=== PATIENT | female | born 1935 | race Caucasian/White ===

== ENCOUNTER → 2016-06-04 | Outpatient (CLI) | payer MEDICARE, OTHER ==
[~2016-06-04] MED LIST: ALDACTONE 25MG25 M1 PO; ALPRAZOLAM; AMBIEN 10MG10 MG PO; AMBIEN5 MG PO; CALTRATE 600 +1 TAB PO; CARAFATE 1GM1 G PO; DYAZIDE 25 MG-51 CAP PO; FLEXERIL 1010 MG/TAB PO; MVI; MYRBETR25MG PO; NEXIUM 20MG20 MG PO; NEXIUM 40MG40 MG PO; NORCO 325 MG-51 TAB PO; PANCREAZE 437501 ECC PO; PHENERGAN W/CO120 M1 PO; PHENERGAN W/CO120 ML PO; PREMARIN .3MG0.3 MG PO; PRILOSEC10 MG PO; PROTONIX20 MG PO; PROVENTIL0.09 MG/A1 IH; TAMIFLU 75MG75 MG PO; XANAX 0.5MG0.5 MG PO; ZANTAC 150MG T150 MG PO; [UNRECOGNIZED DRUG - REMARK] PO; plendil
== END ==
LOC: COL.RAD 05-24 09:00
DX: K21.9 Gastro-esophageal reflux disease without esophagitis (principal); K44.9 Diaphragmatic hernia without obstruction or gangrene

== ENCOUNTER 2016-06-23 08:32 | Day surgery (SDC) | payer MEDICARE, OTHER ==
[2016-06-23] VITALS (9 sets, daily range): BP systolic 134–154; BP diastolic 76–87; PULSE 70–97; TEMP 98–98.6
[~2016-06-23] VITALS: Ht 160 cm; Wt 63.8 kg
[~2016-06-23 08:32] MED LIST changes: -ALDACTONE 25MG25 M1 PO; -AMBIEN 10MG10 MG PO; -CARAFATE 1GM1 G PO; -DYAZIDE 25 MG-51 CAP PO; -FLEXERIL 1010 MG/TAB PO; -MYRBETR25MG PO; -NEXIUM 40MG40 MG PO; -NORCO 325 MG-51 TAB PO; -PANCREAZE 437501 ECC PO; -PREMARIN .3MG0.3 MG PO; -PROTONIX20 MG PO; -PROVENTIL0.09 MG/A1 IH; -XANAX 0.5MG0.5 MG PO; -ZANTAC 150MG T150 MG PO; -[UNRECOGNIZED DRUG - REMARK] PO
[2016-06-23] MEDS ORDERED: NEXIUM 40MG40 MG PO (09:53)
[2016-06-23] MEDS ORDERED: AMBIEN 10MG10 MG PO (09:54)
[2016-06-23] MEDS ORDERED: XANAX 0.5MG0.5 MG PO (09:54)
[2016-06-23] MEDS ORDERED: MYRBETR25MG PO (09:55)
[2016-06-23] MEDS ORDERED: CARAFATE 1GM1 G PO (09:56)
[2016-06-23] MEDS ORDERED: ALDACTONE 25MG25 M1 PO (09:56)
[2016-06-23] MEDS ORDERED: FLEXERIL 1010 MG/TAB PO (09:57)
[2016-06-23] MEDS ORDERED: DYAZIDE 25 MG-51 CAP PO (09:58)
[2016-06-23] MEDS ORDERED: PROTONIX20 MG PO (10:04)
[2016-06-23] MEDS ORDERED: ZANTAC 150MG T150 MG PO (10:06)
[2016-06-23] MEDS ORDERED: PROVENTIL0.09 MG/A1 IH (10:26)
[2016-06-23] MEDS ORDERED: [UNRECOGNIZED DRUG - REMARK] PO (10:29)
[2016-06-23] MEDS ORDERED: PREMARIN .3MG0.3 MG PO (10:30)
[2016-06-23] MEDS ORDERED: PANCREAZE 437501 ECC PO (10:31)
[2016-06-23] MEDS ORDERED: PHENERGAN W/CO120 M1 PO (10:32)
[2016-06-24 02:06] VITALS: BP 120/70; PULSE 93; TEMP 98.5
[2016-06-24 04:40] VITALS: BP 123/72; PULSE 93; TEMP 97.5
[2016-06-24 09:43] VITALS: BP 127/87; PULSE 91; TEMP 97.6
[2016-06-24 13:40] VITALS: BP 125/82; PULSE 102; TEMP 98
[2016-06-24] MEDS ORDERED: NORCO 325 MG-51 TAB PO (18:05)
== END 2016-06-24 18:30 | disposition home or self-care (01) ==
LOC: SDCO 08:32 → JCC 14:44 → SDCO 06-24 18:30
DX: K21.9 Gastro-esophageal reflux disease without esophagitis (principal); K44.9 Diaphragmatic hernia without obstruction or gangrene; R05 Cough; I10 Essential (primary) hypertension
CPT/HCPCS: OP; C1713; J0330; J0690; J1100; J2270; J2370; J2405; J2704; J2710; J3010; J7042; J7120

== ENCOUNTER 2016-07-24 17:53 | Emergency (ER) | payer MEDICARE, OTHER ==
[~2016-07-24] VITALS: Ht 160 cm; Wt 60.0 kg
[~2016-07-24 17:53] MED LIST changes: +ALDACTONE 25MG25 M1 PO; +AMBIEN 10MG10 MG PO; +CARAFATE 1GM1 G PO; +DYAZIDE 25 MG-51 CAP PO; +FLEXERIL 1010 MG/TAB PO; +MYRBETR25MG PO; +NEXIUM 40MG40 MG PO; +NORCO 325 MG-51 TAB PO; +PANCREAZE 437501 ECC PO; +PREMARIN .3MG0.3 MG PO; +PROTONIX20 MG PO; +PROVENTIL0.09 MG/A1 IH; +XANAX 0.5MG0.5 MG PO; +ZANTAC 150MG T150 MG PO; +[UNRECOGNIZED DRUG - REMARK] PO
[2016-07-24 18:02] VITALS: TEMP 98
[2016-07-24 19:01] LABS: BASO % 0.3 % (0.0-2.0); EOS # 0.1 (0.0-0.7); EOS % 0.9 % (0-4.0); GRAN # 5.7 (1.4-6.5); GRAN % 56.4 % (42.2-75.2); HEMATOCRIT 44.9 % (37.0-47.0); HEMOGLOBIN 15.3 g/dl (12.5-16.0); LYMPH # 3.2 (1.2-3.4); LYMPH % 31.5 % (20.0-51.0); MEAN CELL VOLUME 87 fl (80.0-100.0); MEAN CORPUSCULAR HEMOGLOBIN 30 pg (27.0-31.0); MEAN CORPUSCULAR HGB CONC 34 g/dl (33.0-37.0); MEAN PLATELET VOLUME 10.2 fl (7.4-10.4); MONO # 1.1 (0.1-0.6); MONO % 10.7 % (1.7-9.3); PLATELET COUNT 285 K/mm3 (130-400); RED BLOOD COUNT 5.14 M/mm3 (4.10-5.30); REDCELL DISTRIBUTION WIDTH-CV 13.4 % (11.5-14.5)
[2016-07-24 19:13] LABS: ADJUSTED CALCIUM 10.1 mg/dL (8.4-10.2); ALBUMIN 4.8 gm/dL (3.5-5.0); BILIRUBIN,TOTAL 0.8 mg/dL (0.0-1.0); CALCIUM 10.7 mg/dL (8.4-10.2); CREATININE, serum 0.97 mg/dL (0.52-1.25); POTASSIUM 3.6 mmol/L (3.4-5.0)
[2016-07-24 19:57] VITALS: BP 117/94; PULSE 91
== END 2016-07-24 19:57 | disposition home or self-care (01) ==
LOC: COL.ER 17:53
PROVIDERS: Emergency Medicine
DX: R10.13 Epigastric pain (principal); K21.9 Gastro-esophageal reflux disease without esophagitis
CPT/HCPCS: J7040

== ENCOUNTER → 2017-02-09 | Outpatient (CLI) | payer MEDICARE, OTHER | LOC: COL.RAD 13:40 | DX: M54.5 Low back pain (principal); M53.3 Sacrococcygeal disorders, not elsewhere classified; G89.29 Other chronic pain; M79.604 Pain in right leg; Z90.49 Acquired absence of other specified parts of digestive tract; Z90.710 Acquired absence of both cervix and uterus; Z90.13 Acquired absence of bilateral breasts and nipples; Z96.651 Presence of right artificial knee joint | CPT/HCPCS: G0260; J3301 ==

== ENCOUNTER → 2017-08-08 | Outpatient (CLI) | payer MEDICARE, OTHER | LOC: MC.RAD 09:58 | DX: Z12.31 Encounter for screening mammogram for malignant neoplasm of breast (principal); Z98.82 Breast implant status ==

== ENCOUNTER 2018-08-12 17:59 | Inpatient (IN) | payer MEDICARE, OTHER ==
[2018-08-12] VITALS (68 sets, daily range): BP systolic 158–159; BP diastolic 66–76; PULSE 73–74; TEMP 97.8–98.7; O2SAT 95–98
[~2018-08-12] VITALS: Ht 157.5 cm; Wt 57.2 kg
[2018-08-12 18:25] LABS: BASO % 0.1 % (0.0-2.0); EOS % 0.1 % (0-4.0); GRAN # 13.8 (1.4-6.5); GRAN % 82.1 % (42.2-75.2); HEMATOCRIT 40.8 % (37.0-47.0); HEMOGLOBIN 14.8 g/dl (12.5-16.0); LYMPH % 11.8 % (20.0-51.0); MEAN CELL VOLUME 85 fl (80.0-100.0); MEAN CORPUSCULAR HEMOGLOBIN 31 pg (27.0-31.0); MEAN CORPUSCULAR HGB CONC 36 g/dl (33.0-37.0); MEAN PLATELET VOLUME 8.9 fl (7.4-10.4); MONO # 0.9 (0.1-0.6); MONO % 5.6 % (1.7-9.3); PLATELET COUNT 352 K/mm3 (130-400); RED BLOOD COUNT 4.78 M/mm3 (4.10-5.30); REDCELL DISTRIBUTION WIDTH-CV 12.4 % (11.5-14.5)
[2018-08-12 18:29] LABS: PROTHROMBIN TIME 11.5 SECONDS (9.7-12.8)
[2018-08-12 18:34] LABS: ALANINE AMINOTRANSFERASE 17 U/L (9-52); ALBUMIN 4.4 gm/dL (3.5-5.0); ALKALINE PHOSPHATASE 109 U/L (50-136); ANION GAP 13 mmol/L (7-16); AST,SGOT 24 U/L (15-37); BILIRUBIN,TOTAL 1.1 mg/dL (0.0-1.0); BLOOD UREA NITROGEN 15 mg/dL (7-17); CALCIUM 9.9 mg/dL (8.4-10.2); CARBON DIOXIDE 25 mmol/L (22-30); CREATININE, serum 0.55 (0.52-1.25); GLUCOSE 137 mg/dL (74-106); POTASSIUM 3.3 mmol/L (3.4-5.0); TOTAL PROTEIN 7.5 gm/dL (6.4-8.2)
[2018-08-12 18:47] LABS: CHLORIDE 80 mmol/L (98-107); SODIUM 119 mmol/L (137-145); TROPONIN-I < 0.012 ng/mL (0.000-0.035)
[2018-08-12 20:19] LABS: COLLECTION METHOD CLEAN CATCH
[2018-08-12 20:29] LABS: PH 7 (5-8); SQUAMOUS EPITHELIAL None Seen /hpf; URINE APPEARANCE Clear; URINE BACTERIA None Seen /hpf; URINE BILIRUBIN Negative (NEGATIVE); URINE BLOOD Negative (NEGATIVE); URINE COLOR Yellow; URINE GLUCOSE Negative (NEGATIVE); URINE KETONE 1+ (NEGATIVE); URINE LEUKOCYTE ESTERASE Negative (NEGATIVE); URINE NITRATE Negative (NEGATIVE); URINE PROTEIN(semi-quant) Negative (NEGATIVE); URINE RBC 0-2 /hpf; URINE UROBILINOGEN Negative (NEGATIVE)
[2018-08-12] MEDS ORDERED: OMEGA-3 1000 MG1 CAP PO (20:33)
[2018-08-12] MEDS ORDERED: AMBIEN 5MG TABLE5 MG PO (20:33)
--- NOTE | 2018-08-12 22:00 | NUR ---
[facility] Patient requiring minimal assistance to sit up right and to transfer to [facility]. No concerns at this time.
--- NOTE | 2018-08-12 22:19 | NUR ---
Received telephone report from NATALIA Blackwell.
--- NOTE | 2018-08-12 22:37 | NUR ---
Arrived to the unit via stretcher; able to transfer to ICU bed with 2 assist. Attached to all monitor. Patient reported feeling "better than before" and reports nausea is much better. Assessment complete.
--- NOTE | 2018-08-12 22:49 | NUR ---
Reported latest Sodium level to Hospitalist. Hospitalist wanting her to received only 100ml/hr of NS. Also receiving potassium replacement. Will hold NS while potassium runs. Ok'd per hospitalist.
[2018-08-12 23:04] LABS: CALCIUM 9.1 mg/dL (8.4-10.2); CREATININE, serum 0.54 (0.52-1.25); MAGNESIUM 1.4 mg/dL (1.6-2.3); PHOSPHOROUS 3.2 mg/dL (2.5-4.5); POTASSIUM 3.4 mmol/L (3.4-5.0)
[2018-08-13] VITALS (774 sets, daily range): BP systolic 144–159; BP diastolic 66–85; PULSE 73–93; TEMP 97.7–98.7; O2SAT 73–100
[2018-08-13] MEDS ORDERED: XANAX 0.5MG0.5 MG PO (01:08)
[2018-08-13] MEDS ORDERED: PRIL40 PO (01:10)
[2018-08-13] MEDS ORDERED: MYRBETR25MG PO (01:13)
[2018-08-13] MEDS ORDERED: PROMETHAZINE H118 ML (01:21)
[2018-08-13] MEDS ORDERED: BIOTENE ORALBAL42 GM (01:23)
[2018-08-13] MEDS ORDERED: FLEXERIL 1010 MG/TAB PO (02:09)
[2018-08-13] MEDS ORDERED: HAIRSKINNAILS PO (02:12)
[2018-08-13 03:20] LABS: CALCIUM 9.4 mg/dL (8.4-10.2); CREATININE, serum 0.56 (0.52-1.25); POTASSIUM 3.8 mmol/L (3.4-5.0)
--- NOTE | 2018-08-13 04:00 | NUR ---
Awake and resting in bed. No complaints at this time.
[2018-08-13 05:51] LABS: BASO % 0.1 % (0.0-2.0); EOS % 0.1 % (0-4.0); GRAN # 5.3 (1.4-6.5); GRAN % 61.5 % (42.2-75.2); HEMATOCRIT 38.9 % (37.0-47.0); HEMOGLOBIN 13.8 g/dl (12.5-16.0); LYMPH # 2.2 (1.2-3.4); LYMPH % 25.5 % (20.0-51.0); MEAN CELL VOLUME 86 fl (80.0-100.0); MEAN CORPUSCULAR HEMOGLOBIN 31 pg (27.0-31.0); MEAN CORPUSCULAR HGB CONC 36 g/dl (33.0-37.0); MEAN PLATELET VOLUME 9.6 fl (7.4-10.4); MONO # 1.1 (0.1-0.6); MONO % 12.6 % (1.7-9.3); PLATELET COUNT 334 K/mm3 (130-400); REDCELL DISTRIBUTION WIDTH-CV 12.6 % (11.5-14.5)
[2018-08-13 06:07] LABS: CALCIUM 9.2 mg/dL (8.4-10.2); CREATININE, serum 0.56 (0.52-1.25); POTASSIUM 3.6 mmol/L (3.4-5.0)
[2018-08-13 13:36] LABS: CALCIUM 9.3 mg/dL (8.4-10.2); CREATININE, serum 0.59 (0.52-1.25); POTASSIUM 3.3 mmol/L (3.4-5.0)
--- NOTE | 2018-08-13 13:43 | NUR ---
Patient lives with her daughter (Anita) at home in [place], [place] and plans to return home upon recovery. Patient's late approximately 1 year ago and her daughters (Anita and Ethel) are supportive of her medical needs. Patient does not have any durable medical equipment anticipated needs at this time, her primary care physician is Dr. Oneil Nolen, her [facility], and she does have advance directives completed. No further needs at this time, and clinical social work therapist will follow up as needed.
--- NOTE | 2018-08-13 18:17 | NUR ---
Attempted to all surgical floor to give patient report. No answer at desk or charge nurse phone.
--- NOTE | 2018-08-13 18:26 | NUR ---
2nd attempt to call surgical floor for patient report. No answer at desk or on charge nurse phone.
--- NOTE | 2018-08-13 18:34 | NUR ---
Return call from Surgical nurse, Jennie FISHER. Refuses to take nurse report at this time, will have to wait and call to maintenance technician 3rd shift nurse.
--- NOTE | 2018-08-13 18:59 | NUR ---
Report called to Elena RN. Will transfer to room 349 when able.
--- NOTE | 2018-08-13 19:50 | NUR ---
Transferred to room 349 via wheelchair. Elena RN in room on admit, care turned over to her. Patient tucked into bed with call light in hand
--- NOTE | 2018-08-13 20:00 | NUR ---
Patient transferred from ICU per W/C. Is alert and oriented x4. Has SL to left forearm without redness or swelling. Remains on telemetry, shows SR. Instructed to call for assist when needing to get up to the bathroom, verbalized understanding. Watching TV at this time.
--- NOTE | 2018-08-13 22:00 | NUR ---
Patient takes HS meds including Xanax and Ambien for sleep. Lab here to check BMP.
[2018-08-13 22:46] LABS: CALCIUM 9.8 mg/dL (8.4-10.2); CREATININE, serum 0.58 (0.52-1.25); POTASSIUM 3.2 mmol/L (3.4-5.0)
--- NOTE | 2018-08-13 23:00 | NUR ---
Patient on Potassium protocol, K+=3.2, given one dose of Potassium effervescent 20mEq at this time. Will have AM lab.
[2018-08-14 04:00] VITALS: BP 134/87; PULSE 78; TEMP 97.9
--- NOTE | 2018-08-14 04:00 | NUR ---
Patient resting well, no complaints offered of pain or nausea.
[2018-08-14 08:10] LABS: BASO % 0.1 % (0.0-2.0); EOS % 0.3 % (0-4.0); GRAN # 4.9 (1.4-6.5); GRAN % 63.9 % (42.2-75.2); HEMATOCRIT 39.3 % (37.0-47.0); HEMOGLOBIN 13.6 g/dl (12.5-16.0); LYMPH # 1.7 (1.2-3.4); MEAN CELL VOLUME 88 fl (80.0-100.0); MEAN CORPUSCULAR HEMOGLOBIN 31 pg (27.0-31.0); MEAN CORPUSCULAR HGB CONC 35 g/dl (33.0-37.0); MEAN PLATELET VOLUME 9.7 fl (7.4-10.4); MONO % 13.4 % (1.7-9.3); PLATELET COUNT 319 K/mm3 (130-400); RED BLOOD COUNT 4.45 M/mm3 (4.10-5.30)
[2018-08-14 08:24] LABS: CALCIUM 9.2 mg/dL (8.4-10.2); CREATININE, serum 0.51 (0.52-1.25); MAGNESIUM 1.5 mg/dL (1.6-2.3); PHOSPHOROUS 1.7 mg/dL (2.5-4.5)
[2018-08-14 08:29] LABS: POTASSIUM 2.8 mmol/L (3.4-5.0)
[2018-08-14 09:33] VITALS: BP 144/68; PULSE 84; TEMP 97.9
--- NOTE | 2018-08-14 09:53 | NUR ---
Assessment completed, alert/oriented, vital signs stable, denies pain or discomfort and reports "feeling much better", Na 130 and K 2.8 this moring, replacing K per protocol, heart RRR/ SR on tele, lungs CTA/ no reps.difficulty, she is sitting up eating breakfast with daughter in the room, denies other needs at ths time
[2018-08-14 13:12] VITALS: BP 137/69; PULSE 74; TEMP 97.8
--- NOTE | 2018-08-14 13:12 | NUR ---
Initial visit; Patient thanked Battery Installer for looking in on her and offering Spiritual Care. Battery Installer wished Juliet well.
[2018-08-14 16:43] VITALS: BP 148/77; PULSE 81; TEMP 97.9
--- NOTE | 2018-08-14 20:06 | NUR ---
Initial shift assessment done- denies pain at this time- up in room on own- steady on feet-- lab here to redraw potassium level for protocol. Did drink all of nutrition milkshake tonight
[2018-08-15] VITALS: BP 109/57; PULSE 89; TEMP 98
[2018-08-15 04:00] VITALS: BP 100/65; PULSE 86; TEMP 97.8
--- NOTE | 2018-08-15 05:52 | NUR ---
Quiet night- VSS, did sleep for 4-5 hours with the ambien/xanax combination, awake now, watching TV
[2018-08-15 07:47] LABS: CALCIUM 9.8 mg/dL (8.4-10.2); CREATININE, serum 0.55 (0.52-1.25); PHOSPHOROUS 3.3 mg/dL (2.5-4.5); POTASSIUM 4.3 mmol/L (3.4-5.0)
[2018-08-15 08:21] VITALS: BP 162/72; PULSE 88; TEMP 97.6
[2018-08-15] MEDS ORDERED: PRINIVIL20 MG PO (09:05)
[2018-08-15] MEDS ORDERED: MAG-OX 400400 MG/TAB PO (09:05)
--- NOTE | 2018-08-15 09:30 | NUR ---
Patient has been up in the room. She is doing well. No complaints of pain. She is hoping to go home today. She walked in the hallway once this morning. She stated she feeling so much better now. No other changes at this time. Call light within reach.
--- NOTE | 2018-08-15 09:53 | NUR ---
BARTOLOME informed that patient will discharge home today. BARTOLOME presented IM to patient. She signed but did not request a copy.
--- NOTE | 2018-08-15 12:15 | NUR ---
Patient is discharging home. Discharge instructions discussed with patient. No questions verbalized. INT discontinued. Explained when follow up appointment is. Explained she has labs to get done before her follow up appointment. Her daughter is here is going to take her home. 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 All belongings packed up and sent with patient. Patient walked out with this nurse.
== END 2018-08-15 12:15 | disposition home or self-care (01) | DRG 641 ==
LOC: COL.ER 17:59 → SURG 20:43 → ICU 20:43 → SURG 08-13 20:11
PROVIDERS: Emergency Medicine; Hospitalist; Nurse Practitioner Family; Physician Assistant; ADMIT Family Medicine
DX: E87.1 Hypo-osmolality and hyponatremia (principal); Z66 Do not resuscitate; E83.39 Other disorders of phosphorus metabolism; I10 Essential (primary) hypertension; K21.9 Gastro-esophageal reflux disease without esophagitis; E87.6 Hypokalemia; E83.42 Hypomagnesemia; K52.9 Noninfective gastroenteritis and colitis, unspecified
CPT/HCPCS: 99222-AI; 99231-AI; 99239; J1650; J2405; J3475; J3480; J7030; J7050; J7120

== ENCOUNTER → 2018-10-28 | Emergency (ER) | payer MEDICARE, OTHER ==
[~2018-10-28] MED LIST changes: +AMBIEN 5MG TABLE5 MG PO; +BIOTENE ORALBAL42 GM; +HAIRSKINNAILS PO; +MAG-OX 400400 MG/TAB PO; +OMEGA-3 1000 MG1 CAP PO; +PRIL40 PO; +PRINIVIL20 MG PO; +PROMETHAZINE H118 ML
== END ==
LOC: COL.ER 06:34
DX: Z72.9 Problem related to lifestyle, unspecified (principal)

== ENCOUNTER → 2018-11-17 | Outpatient (CLI) | payer MEDICARE, OTHER | LOC: COL.LAB 09:35 | DX: R05 Cough (principal) ==

== ENCOUNTER 2018-12-31 09:53 | Emergency (ER) | payer MEDICARE, OTHER ==
[~2018-12-31] VITALS: Ht 157.5 cm; Wt 57.7 kg
[2018-12-31 10:37] LABS: BASO % 0.2 % (0.0-2.0); GRAN % 84.9 % (42.2-75.2); HEMATOCRIT 42.1 % (37.0-47.0); HEMOGLOBIN 14.6 g/dl (12.5-16.0); LYMPH # 1.1 (1.2-3.4); LYMPH % 6.1 % (20.0-51.0); MEAN CELL VOLUME 87 fl (80.0-100.0); MEAN CORPUSCULAR HEMOGLOBIN 30 pg (27.0-31.0); MEAN CORPUSCULAR HGB CONC 35 g/dl (33.0-37.0); MEAN PLATELET VOLUME 9.3 fl (7.4-10.4); MONO # 1.4 (0.1-0.6); MONO % 8.2 % (1.7-9.3); PLATELET COUNT 297 K/mm3 (130-400); RED BLOOD COUNT 4.83 M/mm3 (4.10-5.30); REDCELL DISTRIBUTION WIDTH-CV 12.7 % (11.5-14.5)
[2018-12-31 10:46] LABS: ALBUMIN 4.7 gm/dL (3.5-5.0); BILIRUBIN,TOTAL 0.6 mg/dL (0.0-1.0); CALCIUM 10.1 mg/dL (8.4-10.2); CREATININE, serum 0.62 (0.52-1.25); POTASSIUM 3.4 mmol/L (3.4-5.0); TOTAL PROTEIN 7.5 gm/dL (6.4-8.2)
[2018-12-31] MEDS ORDERED: ZITHROMAX Z PA250 MG PO (12:16)
[2018-12-31] MEDS ORDERED: CEFTIN500 MG PO (12:16)
[2018-12-31 12:35] VITALS: BP 125/93; PULSE 93; TEMP 98.5
== END 2018-12-31 12:35 | disposition home or self-care (01) ==
LOC: COL.ER 09:53
PROVIDERS: Family Medicine
DX: J18.1 Lobar pneumonia, unspecified organism (principal); I10 Essential (primary) hypertension
CPT/HCPCS: J0696; J1940; J3010

== ENCOUNTER 2019-01-13 08:50 | Emergency (ER) | payer MEDICARE, OTHER ==
[~2019-01-13] VITALS: Ht 157.5 cm; Wt 58.2 kg
[~2019-01-13 08:50] MED LIST changes: +CEFTIN500 MG PO; +ZITHROMAX Z PA250 MG PO
[2019-01-13 08:52] VITALS: TEMP 98.4
[2019-01-13 09:41] LABS: BASO % 0.1 % (0.0-2.0); EOS # 0.1 (0.0-0.7); EOS % 1.4 % (0-4.0); GRAN # 4.6 (1.4-6.5); GRAN % 63.4 % (42.2-75.2); HEMATOCRIT 40.8 % (37.0-47.0); HEMOGLOBIN 13.7 g/dl (12.5-16.0); LYMPH # 1.9 (1.2-3.4); LYMPH % 25.6 % (20.0-51.0); MEAN CELL VOLUME 91 fl (80.0-100.0); MEAN CORPUSCULAR HEMOGLOBIN 30 pg (27.0-31.0); MEAN CORPUSCULAR HGB CONC 34 g/dl (33.0-37.0); MEAN PLATELET VOLUME 9.7 fl (7.4-10.4); MONO # 0.7 (0.1-0.6); MONO % 9.4 % (1.7-9.3); PLATELET COUNT 341 K/mm3 (130-400); REDCELL DISTRIBUTION WIDTH-CV 12.9 % (11.5-14.5)
[2019-01-13] MEDS ORDERED: [UNRECOGNIZED DRUG - CODE] PO ×2 (09:47)
[2019-01-13] MEDS ORDERED: DYAZIDE 25 MG-31 CAP PO (09:48)
[2019-01-13 09:52] LABS: ALBUMIN 4.4 gm/dL (3.5-5.0); BILIRUBIN,TOTAL 0.6 mg/dL (0.0-1.0); CALCIUM 10.3 mg/dL (8.4-10.2); CREATININE, serum 0.7 (0.52-1.25); POTASSIUM 3.4 mmol/L (3.4-5.0); TOTAL PROTEIN 7.5 gm/dL (6.4-8.2)
[2019-01-13 10:05] VITALS: BP 156/91
[2019-01-13] MEDS ORDERED: PREDNISONE20 MG PO (10:39)
[2019-01-13 10:56] VITALS: PULSE 74
== END 2019-01-13 10:57 | disposition home or self-care (01) ==
LOC: COL.ER 08:50
PROVIDERS: Family Medicine
DX: T36.8X5A Adverse effect of other systemic antibiotics, initial encounter (principal); L50.9 Urticaria, unspecified; I10 Essential (primary) hypertension
CPT/HCPCS: J1100; J1200

== ENCOUNTER 2019-02-10 12:30 | Emergency (ER) | payer MEDICARE, OTHER ==
[~2019-02-10] VITALS: Ht 157.5 cm; Wt 57.7 kg
[~2019-02-10 12:30] MED LIST changes: +DYAZIDE 25 MG-31 CAP PO; +PREDNISONE20 MG PO; +[UNRECOGNIZED DRUG - CODE] PO
[2019-02-10 12:37] VITALS: BP 138/79; TEMP 98.8
[2019-02-10] MEDS ORDERED: TESSALON PERLE200 MG PO (14:07)
[2019-02-10 14:31] VITALS: PULSE 81
== END 2019-02-10 14:32 | disposition home or self-care (01) ==
LOC: COL.ER 12:30
DX: J20.9 Acute bronchitis, unspecified (principal); J04.0 Acute laryngitis; I10 Essential (primary) hypertension; F41.9 Anxiety disorder, unspecified; Z90.710 Acquired absence of both cervix and uterus; Z90.49 Acquired absence of other specified parts of digestive tract; Z98.890 Other specified postprocedural states; Z79.52 Long term (current) use of systemic steroids
CPT/HCPCS: J7512

== ENCOUNTER 2019-02-22 08:10 | Day surgery (SDC) | payer MEDICARE, OTHER ==
[~2019-02-22] VITALS: Ht 157.5 cm; Wt 59.4 kg
[~2019-02-22 08:10] MED LIST changes: +TESSALON PERLE200 MG PO
[2019-02-22] MEDS ORDERED: PEP (09:25)
[2019-02-22 09:54] VITALS: BP 120/75; PULSE 85; TEMP 97.1
[2019-02-22 10:40] VITALS: BP 127/70; PULSE 81; TEMP 97.1
[2019-02-22 10:55] VITALS: BP 135/73; PULSE 87
[2019-02-22 11:10] VITALS: BP 131/74; PULSE 89
[2019-02-22 11:25] VITALS: BP 133/72; PULSE 87
--- NOTE | 2019-02-22 12:42 | NUR ---
PT RETURNED FROM PROCEDURE ROOM. VSS, PT WITH SMALL DRY COUGH. A/OX3, LUNGS CLEAR, BOWEL SOUNDS PRESENT. HRR. DAUGHTER AND FRIEND AT BEDSIDE. AFEBRILE, WILL CONT TO MONITOR.
--- NOTE | 2019-02-22 12:50 | NUR ---
PT TOLERATING FOOD AND FLUIDS. TOLERATING WATER, COFFEE AND CHOCOLATE PUDDING. PT DENIES PAIN OR NAUSEA. DENIES DISCOMFORT. DENIES ISSUES WITH SWALLOWING. WILL CONT TO MONITOR. FAMILY AT BEDSIDE, CALL LIGHT IN REACH
--- NOTE | 2019-02-22 12:53 | NUR ---
PT TOLERATING FOOD AND FLUIDS WELL. DENIES PAIN OR NAUSEA. VSS. DISCHARGE INSTRUCTIONS GIVEN, PT AND FAMILY VOICE UNDERSTANDING. IV DC'D PER RIGHT ANTICUBITAL. PT DISCHARGED THROUGH PATIENT ENTRANCE PER W/C. BELONGINGS SENT.
== END 2019-02-22 13:01 | disposition home or self-care (01) ==
LOC: SDCO 08:10
DX: J20.9 Acute bronchitis, unspecified (principal); J44.0 Chronic obstructive pulmonary disease with (acute) lower respiratory infection; R04.2 Hemoptysis; K21.9 Gastro-esophageal reflux disease without esophagitis; Z88.8 Allergy status to other drugs, medicaments and biological substances; Z88.6 Allergy status to analgesic agent; Z85.828 Personal history of other malignant neoplasm of skin; J32.9 Chronic sinusitis, unspecified; Z79.52 Long term (current) use of systemic steroids; Z79.01 Long term (current) use of anticoagulants; Z79.891 Long term (current) use of opiate analgesic; Z79.899 Other long term (current) drug therapy; Z88.7 Allergy status to serum and vaccine; Z90.49 Acquired absence of other specified parts of digestive tract; Z90.710 Acquired absence of both cervix and uterus; I10 Essential (primary) hypertension; M19.90 Unspecified osteoarthritis, unspecified site; F32.9 Major depressive disorder, single episode, unspecified; F41.9 Anxiety disorder, unspecified
CPT/HCPCS: J2704

== ENCOUNTER 2019-03-26 09:50 | Outpatient (RCR) | payer MEDICARE, OTHER ==
[~2019-03-26 09:50] MED LIST changes: +PEP
[2019-03-26] MEDS ORDERED: LEVAQUIN 5500 MG/TA1 PO (21:46)
[2019-03-27] MEDS ORDERED: MYRBETR25MG PO (00:15)
[2019-03-27] MEDS ORDERED: ALBUTEROL0.83 MG/ML IH (12:28)
[2019-03-27] MEDS ORDERED: BIOTIN10000 MC1 PO (12:29)
[2019-03-27] MEDS ORDERED: FLEXERIL 1010 MG/TAB PO (12:29)
[2019-03-27] MEDS ORDERED: CLEOCIN HCL300 MG PO (12:29)
[2019-03-27] MEDS ORDERED: LASIX 20MG TABL20 MG PO (12:30)
[2019-03-27] MEDS ORDERED: MAG-OX 400400 MG/TAB PO (12:31)
[2019-03-27] MEDS ORDERED: ALEVE 220MG220 MG PO (12:32)
[2019-03-27] MEDS ORDERED: PRIL40 PO (12:33)
[2019-03-27] MEDS ORDERED: OMEGA-3 1000 MG1 CAP PO (12:33)
[2019-03-27] MEDS ORDERED: [UNRECOGNIZED DRUG - CODE] PO ×2 (12:34→13:00)
[2019-03-27] MEDS ORDERED: PHENERGAN W/CO120 M1 PO (12:36)
[2019-03-27] MEDS ORDERED: AMBIEN 10MG10 MG PO (12:37)
[2019-03-27] MEDS ORDERED: DYAZIDE 25 MG-31 CAP PO (12:57)
[2019-03-28] MEDS ORDERED: K-DUR20 MEQ PO (10:17)
== END 2019-06-24 | disposition home or self-care (01) ==
LOC: WSST
DX: R05 Cough (principal)

== ENCOUNTER → 2019-04-09 | Outpatient (CLI) | payer MEDICARE, OTHER ==
[~2019-04-09] MED LIST changes: +ALBUTEROL0.83 MG/ML IH; +ALEVE 220MG220 MG PO; +BIOTIN10000 MC1 PO; +CLEOCIN HCL300 MG PO; +K-DUR20 MEQ PO; +LASIX 20MG TABL20 MG PO; +LEVAQUIN 5500 MG/TA1 PO
== END ==
LOC: COL.RAD 14:41
DX: J18.9 Pneumonia, unspecified organism (principal); Z87.828 Personal history of other (healed) physical injury and trauma

== ENCOUNTER → 2019-04-19 | Outpatient (CLI) | payer MEDICARE, OTHER | LOC: BHSO 13:03 | DX: F41.0 Panic disorder [episodic paroxysmal anxiety] (principal) ==

== ENCOUNTER → 2019-05-18 | Outpatient (CLI) | payer MEDICARE, OTHER | LOC: COL.RAD 10:30 | DX: K21.9 Gastro-esophageal reflux disease without esophagitis (principal); R05 Cough ==

== ENCOUNTER → 2020-05-04 | Outpatient (CLI) | payer MEDICARE, OTHER ==
[2020-05-04 18:49] LABS: CLOSTRIDIUM DIFF A/B POS; CLOSTRIDIUM DIFF A/B INTERP Toxigenic C.diff POS
== END ==
LOC: COL.LAB 12:08
PROVIDERS: Internal Medicine
DX: R19.7 Diarrhea, unspecified (principal)

== ENCOUNTER 2020-09-07 04:37 | Observation (INO) | payer MEDICARE, OTHER ==
[~2020-09-07] VITALS: Ht 157.5 cm; Wt 56.8 kg
[2020-09-07 05:21] LABS: BASO % 0.5 % (0.0-2.0); EOS # 0.2 (0.0-0.7); EOS % 3.2 % (0-4.0); GRAN # 2.6 (1.4-6.5); HEMATOCRIT 39.7 % (37.0-47.0); HEMOGLOBIN 12.9 g/dl (12.5-16.0); LYMPH # 2.2 (1.2-3.4); LYMPH % 38.7 % (20.0-51.0); MEAN CELL VOLUME 91 fl (80.0-100.0); MEAN CORPUSCULAR HEMOGLOBIN 30 pg (27.0-31.0); MEAN CORPUSCULAR HGB CONC 33 g/dl (33.0-37.0); MEAN PLATELET VOLUME 9.7 fl (7.4-10.4); MONO # 0.7 (0.1-0.6); MONO % 11.4 % (1.7-9.3); PLATELET COUNT 283 K/mm3 (130-400); RED BLOOD COUNT 4.38 M/mm3 (4.10-5.30); REDCELL DISTRIBUTION WIDTH-CV 13.2 % (11.5-14.5)
[2020-09-07 05:33] LABS: ALANINE AMINOTRANSFERASE 13 U/L (4-34); ALBUMIN 4.1 gm/dL (3.5-5.0); ALKALINE PHOSPHATASE 71 U/L (50-136); ANION GAP 8 mmol/L (7-16); AST,SGOT 25 U/L (15-37); BILIRUBIN,TOTAL 0.2 mg/dL (0.0-1.0); BLOOD UREA NITROGEN 15 mg/dL (7-17); CALCIUM 9.5 mg/dL (8.4-10.2); CARBON DIOXIDE 29 mmol/L (22-30); CHLORIDE 100 mmol/L (98-107); GLUCOSE 112 mg/dL (74-106); POTASSIUM 3.4 mmol/L (3.4-5.0); SODIUM 136 mmol/L (137-145)
[2020-09-07 05:48] LABS: TROPONIN-I < 0.012 ng/mL (0.000-0.035)
[2020-09-07 06:31] LABS: COLLECTION METHOD CLEAN CATCH
[2020-09-07 06:36] LABS: PH 8 (5-8); SQUAMOUS EPITHELIAL None Seen /hpf; URINE APPEARANCE Clear; URINE BACTERIA None Seen /hpf; URINE BILIRUBIN Negative (NEGATIVE); URINE BLOOD Negative (NEGATIVE); URINE COLOR Straw; URINE GLUCOSE Negative (NEGATIVE); URINE KETONE Negative (NEGATIVE); URINE LEUKOCYTE ESTERASE Negative (NEGATIVE); URINE NITRATE Negative (NEGATIVE); URINE PROTEIN(semi-quant) Negative (NEGATIVE); URINE RBC 0-2 /hpf; URINE UROBILINOGEN Negative (NEGATIVE)
[2020-09-07] MEDS ORDERED: SINGULAIR 110 MG/TAB PO (07:24)
[2020-09-07] MEDS ORDERED: CARAFATE 1GM1 G PO (07:29)
[2020-09-07] MEDS ORDERED: DETROL LA4 PO (07:32)
--- NOTE | 2020-09-07 11:22 | NUR ---
Patient admitted from ED for pneumonia. Report recieved from NATALIA Pang. Upon assessment patient's upper lobes were clear to auscultation bilaterally, bases had expiratory wheezes bilaterally. Breathing treatment and tesolon pearls were given in the ED. Normal S1 and S2 sounds present. Pulses were strong and equal bilaterally. Patient did not C/O any pain, discomfort, or SOA. VSS. No edema or skin issues at this time. Patient's daughters at the bedside. Patient denies any further needs at this time. Will continue to monitor. Call light within reach.
[2020-09-07 12:00] VITALS: BP 139/77; PULSE 72; TEMP 98.3
--- NOTE | 2020-09-07 13:14 | NUR ---
Patient being discharged home. IV DC'd catheter intact, no signs of phlebitis. Patient denies any pain, discomfort, SOA, or further needs at this time. Discharge instructions/education given. Patient denies any further questions or concerns. Patient ambulated out of building accompanied by [facility] staff.
== END 2020-09-07 13:17 | disposition home or self-care (01) ==
LOC: COL.ER 04:37 → MEDICAL 07:42
PROVIDERS: Emergency Medicine; ADMIT Internal Medicine
DX: J42 Unspecified chronic bronchitis (principal); I10 Essential (primary) hypertension; G47.00 Insomnia, unspecified; K21.9 Gastro-esophageal reflux disease without esophagitis; N32.81 Overactive bladder; Z90.49 Acquired absence of other specified parts of digestive tract; Z90.710 Acquired absence of both cervix and uterus; Z90.89 Acquired absence of other organs; Z90.13 Acquired absence of bilateral breasts and nipples; Z79.899 Other long term (current) drug therapy; Z20.822 Contact with and (suspected) exposure to COVID-19; Z98.890 Other specified postprocedural states; Z83.3 Family history of diabetes mellitus; Z82.3 Family history of stroke; Z80.9 Family history of malignant neoplasm, unspecified; Z88.5 Allergy status to narcotic agent; Z88.1 Allergy status to other antibiotic agents; Z88.6 Allergy status to analgesic agent; Z91.012 Allergy to eggs; Z91.018 Allergy to other foods; Z88.7 Allergy status to serum and vaccine; Z88.8 Allergy status to other drugs, medicaments and biological substances
CPT/HCPCS: 99222-AI; G0378; J0692; Q9967

== ENCOUNTER 2021-06-26 09:07 | Day surgery (SDC) | payer MEDICARE, OTHER ==
[~2021-06-26] VITALS: Ht 154.9 cm; Wt 54.9 kg
[~2021-06-26 09:07] MED LIST changes: +DETROL LA4 PO; +SINGULAIR 110 MG/TAB PO
[2021-06-26 10:25] VITALS: BP 153/91; PULSE 74; TEMP 97.9
[2021-06-26 11:15] VITALS: BP 155/84; PULSE 77; TEMP 98
--- NOTE | 2021-06-26 11:15 | NUR ---
RECEIVED PT FROM ENDO RN. REPORT RECEIVED. ORIENTED PT TO ROOM AND CALL LIGHT. VERBALIZED UNDERSTANDING. DISCUSSED PLAN OF CARE FOR DISCHARGE.
[2021-06-26 11:30] VITALS: BP 166/114; PULSE 81
--- NOTE | 2021-06-26 11:30 | NUR ---
PT TOLERATING COFFEE AND MUFFIN. WILL CONTINUE TO MONITOR PT. WILL RECHECK BP IN 5 MIN. PT WAS TALKING AND MOVING ARM AROUND.
[2021-06-26 11:35] VITALS: BP 144/74; PULSE 81
--- NOTE | 2021-06-26 11:38 | NUR ---
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 Patient doing alright and thanked power plant engineer for prayer, visit, encouragement.
[2021-06-26 11:45] VITALS: BP 131/64; PULSE 82
--- NOTE | 2021-06-26 11:45 | NUR ---
VSS. PT STATES SHE IS READY FOR DISCHARGE. IV DC'D. DISCHARGE EDUCATION COMPLETED WITH PT AND HER DAUGHTER. VERBALIZED UNDERSTANDING OF HOME AND FOLLOW UP CARE. ALL QUESTIONS ANSWERED. DISCHARGE PAPERWORK GIVEN TO PT'S DAUGHTER.
--- NOTE | 2021-06-26 12:20 | NUR ---
PT OFF UNIT PER WHEELCHAIR ACCOMPANIED BY DAUGHTER. DISCHARGE TO HOME WITH DAUGHTER PER PERSONAL VEHICLE.
== END 2021-06-26 12:20 | disposition home or self-care (01) ==
LOC: SDCO 09:07
DX: K44.9 Diaphragmatic hernia without obstruction or gangrene (principal); K22.4 Dyskinesia of esophagus; Z98.890 Other specified postprocedural states; Z79.899 Other long term (current) drug therapy
CPT/HCPCS: J2704; J3010; J7120

== ENCOUNTER → 2021-07-28 | Outpatient (CLI) | payer MEDICARE, OTHER | LOC: COL.RAD 08:42 | DX: K44.9 Diaphragmatic hernia without obstruction or gangrene (principal); K22.89 Other specified disease of esophagus; K22.4 Dyskinesia of esophagus ==

== ENCOUNTER → 2023-09-05 | Outpatient (CLI) | payer MEDICARE, OTHER ==
[~2023-09-05] MED LIST changes: +Triamcinolone 40 MG/ML 1 ML VIAL IJ SCH
== END ==
LOC: COL.RAD 09-02 13:00
DX: M46.1 Sacroiliitis, not elsewhere classified (principal)
CPT/HCPCS: G0260; J0665; J3301

== ENCOUNTER 2024-01-21 13:11 | Emergency (ER) | payer MEDICARE, OTHER ==
[~2024-01-21] VITALS: Ht 157.5 cm; Wt 49.1 kg
[~2024-01-21 13:11] MED LIST changes: -Triamcinolone 40 MG/ML 1 ML VIAL IJ SCH
[2024-01-21 13:13] VITALS: TEMP 98.3
[2024-01-21 13:49] LABS: CALCIUM 9.9 mg/dL (8.4-10.2); CREATININE, serum 0.77 mg/dL (0.57-1.11); POTASSIUM 3.5 mEq/L (3.5-4.5)
[2024-01-21] MEDS ORDERED: fentaNYL 50 MCG/ML 2 ML VIAL IV ONE (15:00)
[2024-01-21 15:15] VITALS: BP 166/95; PULSE 77
== END 2024-01-21 15:20 | disposition home or self-care (01) ==
LOC: COL.ER 13:11
PROVIDERS: Emergency Medicine
DX: M54.12 Radiculopathy, cervical region (principal)
CPT/HCPCS: J3010

== ENCOUNTER → 2024-02-08 | Outpatient (CLI) | payer MEDICARE, OTHER | LOC: COL.RAD 11:53 | DX: M47.812 Spondylosis without myelopathy or radiculopathy, cervical region (principal); M89.38 Hypertrophy of bone, other site; M48.02 Spinal stenosis, cervical region; M43.12 Spondylolisthesis, cervical region; M25.78 Osteophyte, vertebrae; Z98.1 Arthrodesis status; Z98.890 Other specified postprocedural states ==